=== PATIENT | male | born 1955 | race Two or more races ===

== ENCOUNTER 2025-03-11 05:06 | Inpatient (IN) | payer OTHER ==
[~2025-03-11] VITALS: Ht 167.6 cm; Wt 85.0 kg
--- NOTE | 2025-03-11 05:52 | ED.PDOC ---
GI ASSESSMENT HPI Comments HPI: 69-year-old male who came to ER from abdominal pain. Patient states he woke up at around 3:00 a.m. with periumbilical abdominal pain, had 1 episode of diarrhea, followed by multiple episodes of vomiting. Possibly had spoiled food (potato salad, meatloaf, beans) pain is constant nonradiating. 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 REVIEW OF SYSTEMS: CONSTITUTIONAL: Denies acute: fever, diaphoresis, chills, HEAD: Denies acute: headache, photophobia Eyes: Denies acute: Double vision, vision loss, eye pain, eye discharge. EARS: Denies acute: tinnitus, hearing loss, ear discharge, ear pain, THROAT: Denies acute: sore throat, swelling, difficulty swallowing , pain with swallowing, change in voice. NECK: Denies acute: neck pain, neck swelling, stiff neck. HEART: Denies acute : chest pain, palpitations, LUNGS: Denies acute: SOB, wheezing, cough, hemoptysis ABDOMEN: Denies acute: diarrhea, melena , hematemesis, hematochezia SKIN: Denies acute: rash, redness, lesions, itchiness. EXTREMITIES: Denies acute: calf pain, numbness, tingling, weakness, denies pain in extremity. Denies acute: Low back pain. Neuro: Denies acute: focal neurological deficit, motor or sensory focal neurological deficit, tremors, seizure like activity, confusion, dizziness, change in mental status, loss of bowel or bladder function, cauda equina like symptoms. : Denies acute: dysuria, hematuria, flank pain, increase in urinary frequency. PSYCH: Denies acute: hallucination, suicidal ideation, homicidal ideation. PHYSICAL EXAM: General: ---moderate----acute distress, awake and alert. Head: normocephalic, atraumatic. No raccoon's eyes, no aguiar sign. Neck: supple, trachea is midline, no swelling. Throat: Normal phonation. Eyes:, no erythema, no purulent discharge, no proptosis, no icterus. Heart: regular rate, regular rhythm, no significant murmur appreciated. Lungs: no apparent respiratory distress, Able to speak in full sentences. No wheezing, no rhonchi, no crackles. No stridors Clear to auscultation bilaterally. Abdomen: Umbilical tender to palpation, non distended, soft, no guarding, no rebound, + bowel sounds. Neuro: Awake, Alert, oriented to name, self, situation, follows commands GCS=15. Speech is normal. Skin: no petechia, no purpura, no cyanosis, non-pale, not jaundice. Lower extremities: --no - Pitting edema no deformity, no focal swelling, no calf TTP. Makes eye contact. moves all four extremities. Face: no apparent facial droop. Ambulating in the ED independently. ED COURSE: DISCLAIMER: This medical document was created using an electronic medical record system with voice recognition software and computerized dictation system. Although this document has been carefully reviewed, there might still be some phonetic and typographical errors. Occasional wrong-word or "sound-alike" substitutions may have occurred due to the inherent limitations of voice recognition software. These areas are purely typographical due to imperfections of the software programs and do not reflect any compromise in the patient's medical care. Please read the chart carefully and recognize, using context, where these substitutions have occurred. Chief Complaint: Abdominal Pain Time Seen by MD: 05:51 Reviewed Notes: Nurses Notes, Allergies Allergies: Coded Allergies: NO KNOWN ALLERGIES (Unverified , 03/11/25) Information Source: Patient, Spouse Mode of Arrival: Ambulatory Was a procedure done? Was a procedure done?: No GI differential Dx Differential Diagnosis: Gastritis/PUD, Gastroenteritis, Food Poisoning, Other (DDX include but not limited to diverticulitis, colitis, gastroenteritis, acute abdomen, SBO, enteritis, constipation, volvulus, appendicitis, Gallbladder disease, choledocolithiasis, ascending cholangitis, pancreatitis, intraAbdominal mass/neoplasm, hepatitis, UTI, pylonephritis, kidney stone, aneurysm, dissection, Inflammatory bowel disease, gastroparesis, ischemic bowel.Food poisoning, bacterial/parasitic/viral etiology, trauma, diabetes DKA,) X-Ray, Labs, Meds, VS Vital Signs Date Time Temp Pulse Resp B/P (MAP) Pulse Ox O2 Delivery O2 Flow Rate FiO2 03/11/25 11:00 95 12 124/73 (90) 96 03/11/25 09:00 72 118/77 (91) 92 03/11/25 08:00 73 131/68 (89) 93 03/11/25 07:21 Room Air* 0 21 03/11/25 06:36 80 16 121/74 (90) 96 03/11/25 06:23 140/76 03/11/25 05:08 97.1 115 22 140/76 100 97.1 Lab Test 03/11/25 06:55 03/11/25 06:00 03/11/25 05:40 Range/Units Troponin I High Sensitivity < 3 L < 3 L </=54 ng/L Urine Color Yellow Yellow Urine Clarity Clear Clear Urine pH 7.0 5.0-9.0 Urine Specific [place] 1.025 1.001-1.035 Urine Protein Trace H Negative Urine Ketones 1+ H Negative Urine Blood Negative Negative /uL Urine Nitrite Negative Negative Urine Bilirubin Negative Negative Urine Urobilinogen 2 H Negative mg/dL Urine Leukocyte Esterase Negative Negative /uL Urine RBC <1 0 - 3 /hpf Urine Microscopic WBC 1 0-3 /HPF Urine Squamous Epithelial Cells Few <5 /hpf Urine Bacteria None seen None Seen /hpf Urine Mucus Few None Seen Urine Glucose Normal Normal mg/dL White Blood Count 7.4 4.4-10.8 10^3/uL Red Blood Count 4.96 4.5-5.90 10^6/uL Hemoglobin 15.7 13.5-17.5 g/dL Hematocrit 46.4 41.0-53.0 % Mean Corpuscular Volume 93.5 80.0-100.0 fL Mean Corpuscular Hemoglobin 31.6 28.0-32.0 pg Mean Corpuscular Hemoglobin Concent 33.8 32.0-36.0 g/dL Red Cell Distribution Width 14.0 11.8-14.3 % Platelet Count 179 140-450 10^3/uL Mean Platelet Volume 9.0 6.9-10.8 fL Neutrophils (%) (Auto) 75.2 37.0-80.0 % Lymphocytes (%) (Auto) 16.6 10.0-50.0 % Monocytes (%) (Auto) 6.9 0.0-12.0 % Eosinophils (%) (Auto) 0.8 0.0-7.0 % Basophils (%) (Auto) 0.5 0.0-2.0 % Neutrophils # (Auto) 5.6 1.6-8.6 10 ^3/uL Lymphocytes # (Auto) 1.2 0.4-5.4 10 ^3/uL Monocytes # (Auto) 0.5 0-1.3 10 ^3/uL Eosinophils # (Auto) 0.1 0-0.8 10 ^3/uL Basophils # (Auto) 0 0-0.2 10 ^3/uL Nucleated Red Blood Cells 0.1 % Sodium Level 141 136-145 mmol/L Potassium Level 4.0 3.5-5.1 mmol/L Chloride Level 102 98-107 mmol/L Carbon Dioxide Level 27 20-31 mmol/L Anion Gap 12 5-15 Blood Urea Nitrogen 14 9-23 mg/dL Creatinine 1.03 0.700-1.30 mg/dL Glomerular Filtration Rate Calc 78 >90 mL/min BUN/Creatinine Ratio 13.6 10.0-20.0 Serum Glucose 149 H 74-106 mg/dL Hemoglobin A1c 5.8 H <5.7 % A1C Lactic Acid Level 1.7 0.4-2.0 mmol/L Calcium Level 10.6 H 8.7-10.4 mg/dL Magnesium Level 2.6 1.6-2.6 mg/dL Total Bilirubin 1.2 H 0.2-1.0 mg/dL Aspartate Amino Transferase (AST) 24 13-40 U/L Alanine Aminotransferase (ALT) 21 7-40 U/L Alkaline Phosphatase 71 46-116 U/L Total Protein 8.3 H 5.7-8.2 g/dL Albumin 4.9 H 3.2-4.8 g/dL Lipase 41 12-53 U/L [place] [id number] Ph: [phone] DIAGNOSTIC IMAGING Diagnostic Imaging Report : [id number] Signed PATIENT: WILMA ABREU ACCT: [id number] UNIT: [id number] : 1955 LOC: ER ROOM / BED: / AGE / SEX: 69 / M ADM STATUS: REG ER SERVICE [id number] ORDERING PHYSICIAN: CARMINE GONZALEZ DO PROCEDURE(s): ABPL - CT AB PEL WO CON-NO ORAL OR IV REASON: abd pain n/v ORDER NUMBER(s): [id number], ACCESSION NUMBER(s): [id number] Exam: CT CT AB PEL WO CON-NO ORAL OR IV History: abd pain n/v Comparison Study: None TECHNIQUE: Multidetector CT of the abdomen and pelvis was performed from lung bases to pubic symphysis. Imaging was performed without IV contrast. Axial, coronal and sagittal multiplanar reformats were obtained from the axial data set by the technologist. Radiation optimization: All CT scans at this facility use at least one of these dose optimization techniques: automated exposure control mA and/or kV adjustment per patient size (includes targeted exams where dose is matched to clinical indication) or iterative reconstruction. Radiation Dose Information: CT Dose: CTDI volume is 19.46 mGy. Dose-length product is 1159.91 mGy*cm FINDINGS: Evaluation of solid organs is limited due to lack of intravenous contrast use. Imaged portions of the lung bases demonstrate patchy opacities which may be on the basis of vascular congestion. The liver, gallbladder, spleen, pancreas and adrenal glands appear unremarkable. The kidneys appear symmetric without hydronephrosis. The colon and appendix appear unremarkable. There are dilated loops of small bowel measuring up to 3.3 cm which are fluid-filled. The ileum is relatively collapsed. The duodenum appears normal in caliber. There is no evidence of free fluid, free air, or adenopathy. Scattered colonic diverticulosis. IMPRESSION: 1. Dilated loops of small bowel predominantly of distal jejunum and proximal ileum with normal caliber distal ileum and colon. Findings likely represent partial versus early complete small bowel obstruction. ATED BY: SANDRITA BARAJAS MD DICTATED DATE/TIME: 03/11/25607 SIGNED BY: SANDRITA BARAJAS MD SIGNED DATE/TIME: 03/11/25607 CC: Time of 1ST Reevaluation: 05:47 Reevaluation 1ST: Unchanged Patient Education/Counseling: Diagnosis, Treatment Family Education/Counseling: Diagnosis, Treatment Comments MDM: patient presented with the above HPI.--abdominal pain nausea and vomiting----workup was initiated. patient was found with the above mentioned diagnosis. the following medications were ordered: please refer to order lists of meds and tests obtained by myself Dr. Gonzalez. Patient ED course and VS have been stabilized. Patient has been reassessed in the ED and remained in a stable condition. Pertinent incidental findings were discussed with the patient and/or family. Patient/family voices understanding and is agreeable with plan. Patient has been observed in the ED adequate length of time to insure improvement/stability. Escalation of care considered: Consideration of escalation to observation or admission Patient was found with small bowel obstruction. NG tube was ordered. A consult for General surgery was placed. Patient was ADMITTED to the medicine team for further evaluation and treatment of their presentation. All the reports of any imaging studies that were ordered by myself were reviewed by myself. SEPSIS Sepsis Screen Date sepsis recognized/suspect: Mar 11, 2025 Time Sepsis recognized/suspect: 512 Recent Procedure: No On Antibiotic Therapy: No Respiratory Rate >20: Yes Heart Rate >90: Yes Temp<36 C (96.8 F) or >38.3 C: No SBP <90 or MAP <65 mmHG: No New Acute Mental Status Change: No Is the patient on CPAP, BIPAP,: No Physician Orders Ct Ab Pel Wo Con-No Oral Or Iv (03/11/25 05:20) Ng/Orogastric Tube To Lis (03/11/25 06:14) Vital Signs Date Time Temp Pulse Resp B/P (MAP) Pulse Ox O2 Delivery O2 Flow Rate FiO2 03/11/25 11:00 95 12 124/73 (90) 96 03/11/25 09:00 72 118/77 (91) 92 03/11/25 08:00 73 131/68 (89) 93 03/11/25 07:21 Room Air* 0 21 03/11/25 06:36 80 16 121/74 (90) 96 03/11/25 06:23 140/76 03/11/25 05:08 97.1 115 22 140/76 100 97.1 Laboratory Tests Test 03/11/25 05:40 Lactic Acid Level 1.7 mmol/L (0.4-2.0) White Blood Count 7.4 10^3/uL (4.4-10.8) Departure 1 Departure Time of Disposition: 09:42 ([place]ell Authorization to admit at [facility]: [id number] presented with abdominal pain that was concerning for possible appendicits, gastritis, cholecystitis, colitis, gastroenteritis, sbo, or orther possible surgical emergency. Data: 1. I ordered and reviewed the result of at least 3 labs including a CBC, BMP, and Urinalysis. 2. I independently interpreted the following tests: CT Abdomen and Pelvis is concerning for small bowel obstruction.Risk:This patient has a high risk of morbidity due to further diagnostic testing or treatment and may suffer from an acute abdominal process disorder. Workup reveals small bowel obstruction and intractable pain and patient should be admitted for further workup. and possible expert consultation. ) Impression: Primary Impression: Small bowel obstruction Disposition: ADMITTED INPATIENT Admit to: Tele Condition: Guarded Discharged With: Self Critical Care Note Critical Care Time?: Yes (45 min-critical care time only) Critical care comment: Due to a high probability of clinically significant, life threatening deterioration, the patient required my highest level of preparedness to intervene emergently and I personally spent this critical care time directly and personally managing the patient. This critical care time included obtaining a history; examining the patient; pulse oximetry; ordering and review of studies; arranging urgent treatment with development of a management plan; evaluation of patient's response to treatment; frequent reassessment; and, discussions with other providers. This critical care time was performed to assess and manage the high probability of imminent, life-threatening deterioration that could result in multi-organ failure. It was exclusive of separately billable procedures and treating other patients and teaching time. Please see my other sections and the rest of the note for further information on patient assessment and treatment. I personally scribed for ACRMINE GONZALEZ DO ([email or web address]) on 03/11/25 at 05:52. Electronically submitted by Bharath Archuleta ([email or web address]). CARMINE GONZALEZ DO Mar 11, 2025 05:52 GABRIELLA GONSALES MD Mar 11, 2025 09:43
[2025-03-11 05:57] LABS: Hematocrit 46.4 % (41.0-53.0); Hemoglobin 15.7 g/dL (13.5-17.5); Mean Corpuscular Hemoglobin 31.6 pg (28.0-32.0); Mean Corpuscular Volume 93.5 fL (80.0-100.0); Nucleated Red Blood Cells % 0.1 %
--- NOTE | 2025-03-11 06:09 | DVH ---
Exam: CT CT AB PEL WO CON-NO ORAL OR IV History: abd pain n/v Comparison Study: None TECHNIQUE: Multidetector CT of the abdomen and pelvis was performed from lung bases to pubic symphysis. Imaging was performed without IV contrast. Axial, coronal and sagittal multiplanar reformats were obtained from the axial data set by the technologist. Radiation optimization: All CT scans at this facility use at least one of these dose optimization techniques: automated exposure control mA and/or kV adjustment per patient size (includes targeted exams where dose is matched to clinical indication) or iterative reconstruction. Radiation Dose Information: CT Dose: CTDI volume is 19.46 mGy. Dose-length product is 1159.91 mGy*cm FINDINGS: Evaluation of solid organs is limited due to lack of intravenous contrast use. Imaged portions of the lung bases demonstrate patchy opacities which may be on the basis of vascular congestion. The liver, gallbladder, spleen, pancreas and adrenal glands appear unremarkable. The kidneys appear symmetric without hydronephrosis. The colon and appendix appear unremarkable. There are dilated loops of small bowel measuring up to 3.3 cm which are fluid-filled. The ileum is relatively collapsed. The duodenum appears normal in caliber. There is no evidence of free fluid, free air, or adenopathy. Scattered colonic diverticulosis. IMPRESSION: 1. Dilated loops of small bowel predominantly of distal jejunum and proximal ileum with normal caliber distal ileum and colon. Findings likely represent partial versus early complete small bowel obstruction.
[2025-03-11 06:10] LABS: Urine Protein, UAD TRACE (Negative)
[2025-03-11] MEDS ORDERED: ONDANSETRON HCL 4 MG/2 ML VIAL ONE (06:15)
[2025-03-11] MEDS ORDERED: fentaNYL CITRATE 100 MCG/2 ML VL ONE (06:16)
[2025-03-11] MEDS: SODIUM CHLORIDE 0.9% 1,000 ML IV ONE (06:19)
[2025-03-11] MEDS: ONDANSETRON HCL 4 MG/2 ML VIAL IV ONE (06:20)
[2025-03-11 06:22] LABS: Alanine Aminotransferase 21 U/L (7-40); Alkaline Phosphatase 71 U/L (46-116); Anion Gap 12 (5-15); BUN/Creatinine Ratio 13.6 (10.0-20.0); Bilirubin, Total 1.2 mg/dL (0.2-1.0); Blood Urea Nitrogen 14 mg/dL (9-23); Carbon Dioxide 27 mmol/L (20-31); Chloride 102 mmol/L (98-107); Potassium 4.0 mmol/L (3.5-5.1); Sodium 141 mmol/L (136-145)
[2025-03-11 06:23] LABS: Albumin 4.9 g/dL (3.2-4.8); Calcium 10.6 mg/dL (8.7-10.4); Glucose 149 mg/dL (74-106); Total Protein 8.3 g/dL (5.7-8.2)
[2025-03-11] MEDS: fentaNYL CITRATE 100 MCG/2 ML VL IV ONE (06:23)
[2025-03-11 06:33] LABS: Lipase 41 U/L (12-53)
[2025-03-11] MEDS ORDERED: NITROGLYCERIN 0.4 MG SL TAB SL PRN (11:30)
[2025-03-11] MEDS ORDERED: MORPHINE SULFATE INJ 2 MG/ml SYRG IV PRN ×2 (11:30)
--- NOTE | 2025-03-11 11:43 | DVHHPRES ---
History of Present Illness Resident Creating Document: BERTA GREER RESIDENT History of Present Illness Mr. 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 Pain is constant, non-radiating. On exam, abdomen is soft, non-distended, with periumbilical tenderness, positive bowel sounds, and no guarding or rebound. Patient denies any previous similar history, upper or lower GI bleed, fever, chills, or aspiration. Differential includes gastritis/PUD, gastroenteritis, bowel obstruction and food poisoning. No prior hospitalization noted, patient usually follows with the [facility] system, limited access to the medical records for now. [place] Authorization to admit at [facility]: [id number]. PMHx: Denies. Not on home medications. 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 Social history: Comes from home, denies active alcohol, recreational drug, smoking. Review of Systems Constitutional: Yes: Malaise; No: Fever, Chills, Sweats, Weakness, Other Eyes: No: Pain, Vision change, Conjunctivae inflammation, Eyelid inflammation, Other, Redness ENT: No: Ear pain, Ear discharge, Nose pain, Nose discharge, Nose congestion, Mouth pain, Mouth swelling, Throat pain, Throat swelling, Other Respiratory: No: Cough, Dry, Shortness of breath, SOB with excertion, Wheezing, Hemoptysis, Pleuritic Pain, Sputum, Wheezing, Other Cardiovascular: No: Chest Pain, Palpitations, Orthopnea, Paroxysmal Noc. Dyspnea, Edema, Lt Headedness, Other Gastrointestinal: Nausea, Vomiting, Abdominal Pain, Constipation; No: Diarrhea, Melena, Hematochezia, Other Genitourinary: No Dysuria, No Frequency, No Incontinence, No Hematuria, No Retention, No Other Musculoskeletal: No: other, neck pain, shoulder pain, arm pain, back pain, hand pain, leg pain, foot pain Skin: No: Rash, Lesions, Jaundice, Bruising, Other Neurological: No: Weakness, Numbness, Incoordination, Change in speech, Confusion, Seizures, Other Allergies: Coded Allergies: NO KNOWN ALLERGIES (Unverified , 03/11/25) Medications Current Medications Medications Dose Ordered Sig/Rik Route Start Time Stop Time Status Last Admin Dose Admin Sodium Chloride 1,000 ml @ 60 mls/hr [id number] IV 03/11/25 11:30 UNV Morphine Sulfate 2 mg Q4HPRN PRN IV 03/11/25 11:30 UNV Nitroglycerin 0.4 mg Q5MINP PRN SL 03/11/25 11:30 UNV Morphine Sulfate 2 mg Q30M PRN IV 03/11/25 11:30 UNV Exam Vital Signs Vital Signs Date Time Temp Pulse Resp B/P (MAP) Pulse Ox O2 Delivery O2 Flow Rate FiO2 03/11/25 07:21 Room Air* 0 21 03/11/25 06:36 80 16 121/74 (90) 96 03/11/25 05:08 97.1 97.1 General Appearance: Alert, Oriented X3, Cooperative, mild distress HEENT: Atraumatic, PERRLA, EOMI, Other (Dry mucous membrane.) Respiratory: Clear to auscultation, Normal air movement, Other (Breathing comfortably in the room air) Cardiovascular: Regular rate, Normal S1, Normal S2, No murmurs Abdominal: Other (Absent BS, distended abdomen, no cardboard rigidity, tympanic, diffuse pain in the left lower quadrant, epigastric area and right lower quadrant. Vizcaino's negative. Right paramedian healed surgical wound. ) Extremities: No clubbing, No cyanosis, No edema Skin: No rashes, No breakdown, No significant lesion Neuro: Normal speech, Strength at 5/5 X4 ext, Normal tone, Sensation intact, Cranial nerves 3-12 NL, Other (Patient is uncomfortable, denied further gait testing. Denies any movement issues prior to the hospitalization.) Psych/Mental Status: Mental status NL, Mood NL Labs/Xrays Labs Test 03/11/25 06:55 03/11/25 06:00 03/11/25 05:40 Range/Units Troponin I High Sensitivity < 3 L </=54 ng/L Urine Color Yellow Yellow Urine Clarity Clear Clear Urine pH 7.0 5.0-9.0 Urine Specific [place] 1.025 1.001-1.035 Urine Protein Trace H Negative Urine Ketones 1+ H Negative Urine Blood Negative Negative /uL Urine Nitrite Negative Negative Urine Bilirubin Negative Negative Urine Urobilinogen 2 H Negative mg/dL Urine Leukocyte Esterase Negative Negative /uL Urine RBC <1 0 - 3 /hpf Urine Microscopic WBC 1 0-3 /HPF Urine Squamous Epithelial Cells Few <5 /hpf Urine Bacteria None seen None Seen /hpf Urine Mucus Few None Seen Urine Glucose Normal Normal mg/dL White Blood Count 7.4 4.4-10.8 10^3/uL Red Blood Count 4.96 4.5-5.90 10^6/uL Hemoglobin 15.7 13.5-17.5 g/dL Hematocrit 46.4 41.0-53.0 % Mean Corpuscular Volume 93.5 80.0-100.0 fL Mean Corpuscular Hemoglobin 31.6 28.0-32.0 pg Mean Corpuscular Hemoglobin Concent 33.8 32.0-36.0 g/dL Red Cell Distribution Width 14.0 11.8-14.3 % Platelet Count 179 140-450 10^3/uL Mean Platelet Volume 9.0 6.9-10.8 fL Neutrophils (%) (Auto) 75.2 37.0-80.0 % Lymphocytes (%) (Auto) 16.6 10.0-50.0 % Monocytes (%) (Auto) 6.9 0.0-12.0 % Eosinophils (%) (Auto) 0.8 0.0-7.0 % Basophils (%) (Auto) 0.5 0.0-2.0 % Neutrophils # (Auto) 5.6 1.6-8.6 10 ^3/uL Lymphocytes # (Auto) 1.2 0.4-5.4 10 ^3/uL Monocytes # (Auto) 0.5 0-1.3 10 ^3/uL Eosinophils # (Auto) 0.1 0-0.8 10 ^3/uL Basophils # (Auto) 0 0-0.2 10 ^3/uL Nucleated Red Blood Cells 0.1 % Sodium Level 141 136-145 mmol/L Potassium Level 4.0 3.5-5.1 mmol/L Chloride Level 102 98-107 mmol/L Carbon Dioxide Level 27 20-31 mmol/L Anion Gap 12 5-15 Blood Urea Nitrogen 14 9-23 mg/dL Creatinine 1.03 0.700-1.30 mg/dL Glomerular Filtration Rate Calc 78 >90 mL/min BUN/Creatinine Ratio 13.6 10.0-20.0 Serum Glucose 149 H 74-106 mg/dL Lactic Acid Level 1.7 0.4-2.0 mmol/L Calcium Level 10.6 H 8.7-10.4 mg/dL Total Bilirubin 1.2 H 0.2-1.0 mg/dL Aspartate Amino Transferase (AST) 24 13-40 U/L Alanine Aminotransferase (ALT) 21 7-40 U/L Alkaline Phosphatase 71 46-116 U/L Total Protein 8.3 H 5.7-8.2 g/dL Albumin 4.9 H 3.2-4.8 g/dL Lipase 41 12-53 U/L SEPSIS Sepsis Screen Date sepsis recognized/suspect: Mar 11, 2025 Time Sepsis recognized/suspect: 512 Recent Procedure: No On Antibiotic Therapy: No Respiratory Rate >20: Yes Heart Rate >90: Yes Temp<36 C (96.8 F) or >38.3 C: No SBP <90 or MAP <65 mmHG: No New Acute Mental Status Change: No Is the patient on CPAP, BIPAP,: No Physician Orders Ct Ab Pel Wo Con-No Oral Or Iv (03/11/25 05:20) Troponin-I Hs (03/11/25 08:20) Ng/Orogastric Tube To Lis (03/11/25 06:14) Admit (03/11/25 11:23) Allergies (03/11/25 11:23) Code Status (03/11/25 11:23) Sodium Chloride 0.9% (03/11/25 11:30) Complete Blood Count (03/12/25 04:00) Comprehensive Metabolic Panel (03/12/25 04:00) Npo (Nothing By Mouth) Diet (03/11/25 Lunch) Condition: Serious (03/11/25 11:23) Bedrest With Bathroom Privileg (03/11/25 11:23) Bedside Commode (03/11/25 11:23) Maintain Bed Rest (03/11/25 11:23) Morphine Sulfate Injection (03/11/25 11:30) Sequential Compression Device (03/11/25 ) Nitroglycerin Sublingual (Ntrostat Subli (03/11/25 11:30) Morphine Sulfate Injection (03/11/25 11:30) Oxygen By Nasal Cannula (03/11/25 11:23) Stat Ekg For Chest Pain (03/11/25 11:23) Notify Of Changes From Base (03/11/25 11:23) Social Services Analyst For 24 Hours (03/11/25 11:23) Emergency Dysrhythmia Protocol (03/11/25 11:23) Rhythm Strips Once Every Shift (03/11/25 11:23) * Surgical Consult (03/11/25 11:29) Vital Signs Date Time Temp Pulse Resp B/P (MAP) Pulse Ox O2 Delivery O2 Flow Rate FiO2 03/11/25 07:21 Room Air* 0 21 03/11/25 06:36 80 16 121/74 (90) 96 03/11/25 06:23 140/76 03/11/25 05:08 97.1 115 22 140/76 100 97.1 Laboratory Tests Test 03/11/25 05:40 Lactic Acid Level 1.7 mmol/L (0.4-2.0) White Blood Count 7.4 10^3/uL (4.4-10.8) Medications Medications Dose Ordered Sig/Rik Route Start Time Stop Time Status Last Admin Dose Admin Fentanyl Citrate 100 mcg ONCE ONCE IV 03/11/25 06:15 03/11/25 06:20 DC 03/11/25 06:23 100 MCG Ondansetron HCl 8 mg ONCE ONCE IV 03/11/25 05:30 03/11/25 05:31 DC 03/11/25 06:20 8 MG Sodium Chloride 1,000 ml @ 1,000 mls/hr Q1H ONCE IV 03/11/25 05:30 03/11/25 06:29 DC 03/11/25 06:19 1,000 MLS/HR Assessment/Plan Assessment/Plan Assessment and Plan: Present on Admission: #acute gastroenteritis: Viral versus bacterial origin; Gram-negative, anaerobes, status post spoiled food ingestion, nausea vomiting diarrhea, rule out cyclic vomiting syndrome, UDS to check. Stool workup pending, IV fluid antiemetics, NPO for now. IV Zosyn for coverage, no history of recent hospitalization, antibiotics, prior history of C diff, clinically unlikely. No EGD ever done in past 10 years. #Acute small-bowel obstruction: Dilated loops of small bowel predominantly of distal jejunum and proximal ileum with normal caliber distal ileum and colon on CT abdomen pelvis represent partial versus early complete small bowel obstruction: NPO, underlying cause to evaluate, bowel decompression, symptomatic treatment, electrolyte correction and surgical consultation with Dr. Hickman. close monitoring with interval abdominal examination for progression into surgical abdomen. Rule out secondary causes including diabetes, ischemia, if high suspicion of obstructive mass repeat CT with contrast to consider. Repeat lactic acid in a.m.. #Pseudo hypercalcemia: normalized for corrected calcium for albumin. Trend CMP. If true hypercalcemia noted, further workup with vitamin-D, PTH, ionized calcium corrected for albumin. #Possible sepsis: Likely secondary due to intra-abdominal infection. Noted on arrival meeting SIRS criteria, Presented with heart rate more than 90, respiratory rate more than 20, with possible intra-abdominal infection. blood culture, stool further workup, #Scattered colonic diverticulosis: Noted on CT abdomen pelvis. Avoid constipa tion, high-fiber diet when resumes diet, needs outpatient close GI follow up for age-appropriate GI workup. #mild hyperbilirubinemia: In the presence of abdominal pain and limited medical history, we will rule out any hepatobiliary obstruction with liver ultrasound. Trend bilirubin. #[id number] dehydration: Antiemetics, IV fluid to continue, no signs of fluid overload, no pedal edema, crackles, elevated JVP, breathing comfortably in the room air. #Distant history of H Pylori infection: PUD/GERD history. as per patient it was treated in [facility]. Last Colonoscopy 6 years ago, no concerning findings he can recall. 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 PUD prophylaxis: protonix 40mg IV to continue as patient is NPO. DVT prophylaxis: SCD/brisk movement. In preparation of surgical intervention. Barriers to discharge: Medical diagnosis and management in progress. Medically not stable to transfer to another acute facility. PT and SW consult as needed. PCP: Nilo COON. Limited History. Specialist Relevant To Admission: General surgery, on-call Dr. Hickman consulted. Case discussed with Dr. Pace. Code Status: Full Code. Discussion for medical care and goals of care needed total 23 minutes bedside. Patient is admitted to the [facility] surgery floor. Plan discussed with: Patient My Orders Orders - BERTA GREER Procedure Category Date Status Time Admit ADMIT 03/11/25 Transmitted 11:23 Allergies TAMERA 03/11/25 In Process 11:23 Code Status CODE 03/11/25 Transmitted 11:23 Sodium Chloride 0.9% PHA 03/11/25 Logged 11:30 Complete Blood Count LAB 03/12/25 Verified 04:00 Comprehensive LAB 03/12/25 Verified Metabolic Panel 04:00 Npo (Nothing By DIET 03/11/25 Transmitted Mouth) Diet Lunch Condition: Serious TAMERA 03/11/25 In Process 11:23 Bedrest With Bathroom [facility] 03/11/25 In Process Privileg 11:23 Bedside Commode [facility] 03/11/25 In Process 11:23 Maintain Bed Rest [facility] 03/11/25 In Process 11:23 Morphine Sulfate PHA 03/11/25 Logged Injection 11:30 Sequential [facility] 03/11/25 In Process Compression Device Nitroglycerin PHA 03/11/25 Logged Sublingual (Ntrostat 11:30 Morphine Sulfate PHA 03/11/25 Logged Injection 11:30 Oxygen By Nasal RT 03/11/25 Transmitted Cannula 11:23 Stat Ekg For Chest [facility] 03/11/25 In Process Pain 11:23 Notify Md Of Changes [facility] 03/11/25 In Process From Base 11:23 Social Services Analyst For [facility] 03/11/25 In Process 24 Hours 11:23 Emergency Dysrhythmia [facility] 03/11/25 In Process Protocol 11:23 Rhythm Strips Once [facility] 03/11/25 In Process Every Shift 11:23 * Surgical Consult CONS 03/11/25 Transmitted 11:29 Date of Service: Mar 11, 2025 Billing Provider: ROLO PACE MD Common Visit Codes: [id number] INP/OBS CARE (HIGH) Secondary Visit Codes: [id number] CARE PLAN 30 MINUTES BERTA GREER Mar 11, 2025 11:43
[2025-03-11] MEDS ORDERED: ONDANSETRON HCL 4 MG/2 ML VIAL IV PRN (11:45)
--- NOTE | 2025-03-11 12:37 | DVH ---
STUDY: US LIVER TECHNIQUE: RUQ ultrasound was obtained using standard technique with Doppler. INDICATIONS: elevated bilirubin r/o obstruction FINDINGS: PANCREAS: Normal in size and echogenicity. Tail of pancreas is not well seen. LIVER: Hepatomegaly to 17 cm. Heterogenous echotexture. 6.8 x 5.2 x 4.1 cm echogenic mass within the right hepatic lobe. GALLBLADDER: No gallstones. Negative middleton sign. no gallbladder wall thickening or pericholecystic fluid. COMMON BILE DUCT: Normal in caliber. RIGHT KIDNEY: Normal in size and echogenicity. No mass. No urinary stones. No hydronephrosis. IMPRESSION: 1. No gallstones. No CBD dilation. 2. Hepatomegaly with a 6.8 cm echogenic mass within the right hepatic lobe. Recommend CT or MRI liver mass protocol for further evaluation.
[2025-03-11] MEDS: SODIUM CHLORIDE 0.9% 1,000 ML IV SCH (13:56)
[2025-03-11] MEDS: PANTOPRAZOLE 40 MG/10 ML VIAL INJ IV SCH (13:57)
[2025-03-11] MEDS ORDERED: PANTOPRAZOLE 40 MG/10 ML VIAL INJ IV ONE (13:57)
[2025-03-11] MEDS: PIPERACILLIN-TAZOB 3.375GM 100 ML IV SCH (14:04)
[2025-03-11] MEDS ORDERED: PIPERACILLIN-TAZOB 3.375GM 100 ML IV ONE (14:04)
[2025-03-11 16:53] VITALS: RESP 18; O2SAT 96
[2025-03-11 17:21] VITALS: BP 144/84; PULSE 79; RESP 17; TEMP 97.5; O2SAT 95
--- NOTE | 2025-03-11 17:57 | DVHINCON2 ---
Consultation - Surgical Date Seen: Mar 11, 2025 Referring Physician Reason for Consultation Partial SBO History of Present Illness History of Present Illness Mr. Cruz is a 69-year-old male who presents with a abdominal pain, nausea, vomiting that started last night after eating at a [employer]. Patient states that probably ate some bad food, because it feels exactly the same way it did when he had food poisoning in the past. Patient states that he started with the abdominal pain then developed nausea vomiting and then had bowel movements. No blood in the vomit or bowel movements. He states that he vomited many times and now he feels good. States that his abdomen is back to normal. Denies fevers, chills, changes in urinary habits. NG tube was not placed in the emergency department although he vomited like 6 or 7 times in the emergency department. Past Medical/Surgical History Past Medical/Surgical History Past medical history liver amebiasis Past surgical history liver resection due to amebiasis Family and Social History Family and Social History Family history noncontributory ETOH occasional T Ob/drugs denies Allergies and medications Allergies: Coded Allergies: NO KNOWN ALLERGIES (Unverified , 03/11/25) Review of systems Review of Systems: Deferred Examination Vital signs Vital Signs Date Time Temp Pulse Resp B/P (MAP) Pulse Ox O2 Delivery O2 Flow Rate FiO2 03/11/25 17:21 97.5 79 17 144/84 (104) 95 97.5 03/11/25 07:21 Room Air* 0 21 Medications Current Medications Medications (Trade) Dose Ordered Sig/Rik Route PRN Reason Start Time Stop Time Status Last Admin Sodium Chloride 1,000 ml @ 60 mls/hr [id number] IV 03/11/25 11:30 03/11/25 13:56 Morphine Sulfate 2 mg Q4HPRN PRN IV SEVERE PAIN (7-10 PAIN SCALE) 03/11/25 11:30 Nitroglycerin (Ntrostat Sublingual) 0.4 mg Q5MINP PRN SL FOR CHEST PAIN 03/11/25 11:30 Morphine Sulfate 2 mg Q30M PRN IV FOR CHEST PAIN 03/11/25 11:30 Ondansetron HCl (Zofran) 4 mg Q8HP PRN IV NAUSEA OR VOMITING 03/11/25 11:45 Piperacillin Sod/ Tazobactam Sod 100 ml @ 100 mls/hr Q8HR IV 03/11/25 14:00 03/11/25 14:04 Pantoprazole Sodium (Protonix) 40 mg DAILY IV 03/11/25 12:00 03/11/25 13:57 Laboratory Labs Test 03/11/25 06:55 03/11/25 06:00 03/11/25 05:40 Range/Units Troponin I High Sensitivity < 3 L </=54 ng/L Urine Color Yellow Yellow Urine Clarity Clear Clear Urine pH 7.0 5.0-9.0 Urine Specific [place] 1.025 1.001-1.035 Urine Protein Trace H Negative Urine Ketones 1+ H Negative Urine Blood Negative Negative /uL Urine Nitrite Negative Negative Urine Bilirubin Negative Negative Urine Urobilinogen 2 H Negative mg/dL Urine Leukocyte Esterase Negative Negative /uL Urine RBC <1 0 - 3 /hpf Urine Microscopic WBC 1 0-3 /HPF Urine Squamous Epithelial Cells Few <5 /hpf Urine Bacteria None seen None Seen /hpf Urine Mucus Few None Seen Urine Glucose Normal Normal mg/dL White Blood Count 7.4 4.4-10.8 10^3/uL Red Blood Count 4.96 4.5-5.90 10^6/uL Hemoglobin 15.7 13.5-17.5 g/dL Hematocrit 46.4 41.0-53.0 % Mean Corpuscular Volume 93.5 80.0-100.0 fL Mean Corpuscular Hemoglobin 31.6 28.0-32.0 pg Mean Corpuscular Hemoglobin Concent 33.8 32.0-36.0 g/dL Red Cell Distribution Width 14.0 11.8-14.3 % Platelet Count 179 140-450 10^3/uL Mean Platelet Volume 9.0 6.9-10.8 fL Neutrophils (%) (Auto) 75.2 37.0-80.0 % Lymphocytes (%) (Auto) 16.6 10.0-50.0 % Monocytes (%) (Auto) 6.9 0.0-12.0 % Eosinophils (%) (Auto) 0.8 0.0-7.0 % Basophils (%) (Auto) 0.5 0.0-2.0 % Neutrophils # (Auto) 5.6 1.6-8.6 10 ^3/uL Lymphocytes # (Auto) 1.2 0.4-5.4 10 ^3/uL Monocytes # (Auto) 0.5 0-1.3 10 ^3/uL Eosinophils # (Auto) 0.1 0-0.8 10 ^3/uL Basophils # (Auto) 0 0-0.2 10 ^3/uL Nucleated Red Blood Cells 0.1 % Sodium Level 141 136-145 mmol/L Potassium Level 4.0 3.5-5.1 mmol/L Chloride Level 102 98-107 mmol/L Carbon Dioxide Level 27 20-31 mmol/L Anion Gap 12 5-15 Blood Urea Nitrogen 14 9-23 mg/dL Creatinine 1.03 0.700-1.30 mg/dL Glomerular Filtration Rate Calc 78 >90 mL/min BUN/Creatinine Ratio 13.6 10.0-20.0 Serum Glucose 149 H 74-106 mg/dL Hemoglobin A1c 5.8 H <5.7 % A1C Lactic Acid Level 1.7 0.4-2.0 mmol/L Calcium Level 10.6 H 8.7-10.4 mg/dL Magnesium Level 2.6 1.6-2.6 mg/dL Total Bilirubin 1.2 H 0.2-1.0 mg/dL Aspartate Amino Transferase (AST) 24 13-40 U/L Alanine Aminotransferase (ALT) 21 7-40 U/L Alkaline Phosphatase 71 46-116 U/L Total Protein 8.3 H 5.7-8.2 g/dL Albumin 4.9 H 3.2-4.8 g/dL Lipase 41 12-53 U/L Examination: GENERAL:Normal (Well nourished, alert awake and oriented x3), HEENT:Normal (No icterus, neck supple), LUNGS:Normal (Nonlabored breathing with symmetric expansion), ABDOMEN:Normal (Nondistended, paramedian scar healed, soft, depressible, nontender, no hernias, no masses), SKIN:Normal (No jaundice) Problem List/Assessment/Plan Problems: (1) Small bowel obstruction Assessment and Plan Mr. Cruz is a 69-year-old male who presents with a partial small bowel obstruction versus food poisoning. Patient had multiple stooling and emesis episodes and currently is feeling good. On physical exam he is not distended and nontender. He never got an NG-tube placed and at this point he has not felt nauseous or been vomiting. We will let the patient rest for today and we will likely obtain a small-bowel follow-through in the morning, unless he has another large bowel movement. Plan discussed with Plan discussed with: Patient, Spouse Visit Coding Surgery Date of Service if different f: Mar 11, 2025 Billing Provider: ANNETTA HERNANDEZ MD Surgery Visit Codes: [id number] - INP CONSULT <110 MIN ANNETTA HERNANDEZ MD Mar 11, 2025 17:56
[2025-03-11 21:00] VITALS: BP 155/87; PULSE 72; RESP 16; TEMP 97.3; O2SAT 95
[2025-03-11 22:00] VITALS: BP 148/89
[2025-03-12] VITALS (8 sets, daily range): BP systolic 120–144; BP diastolic 74–84; PULSE 61–95; RESP 16–20; TEMP 97.6–99.7; O2SAT 93–97
[2025-03-12 06:07] LABS: Hematocrit 39.3 % (41.0-53.0); Hemoglobin 13.5 g/dL (13.5-17.5); Mean Corpuscular Hemoglobin 32.4 pg (28.0-32.0); Mean Corpuscular Volume 93.9 fL (80.0-100.0); Nucleated Red Blood Cells % 0.0 %
[2025-03-12] MEDS: PIPERACILLIN-TAZOB 3.375GM 100 ML IV ONE ×2 (06:08→15:11)
[2025-03-12 06:22] LABS: Alanine Aminotransferase 15 U/L (7-40); Albumin 3.9 g/dL (3.2-4.8); Alkaline Phosphatase 48 U/L (46-116); Anion Gap 12 (5-15); BUN/Creatinine Ratio 17.5 (10.0-20.0); Blood Urea Nitrogen 18 mg/dL (9-23); Carbon Dioxide 27 mmol/L (20-31); Chloride 106 mmol/L (98-107); Magnesium 2.3 mg/dL (1.6-2.6); Potassium 3.8 mmol/L (3.5-5.1); Total Protein 6.6 g/dL (5.7-8.2)
[2025-03-12 06:36] LABS: Bilirubin, Total 1.5 mg/dL (0.2-1.0); Calcium 8.7 mg/dL (8.7-10.4); Glucose 107 mg/dL (74-106); Sodium 145 mmol/L (136-145)
[2025-03-12] MEDS: PANTOPRAZOLE 40 MG/10 ML VIAL INJ IV ONE (10:34)
--- NOTE | 2025-03-12 11:31 | DVHPN2 ---
Progress Note - Surgical Date Seen: Mar 12, 2025 Post op day Post op day: 0 Subjective Patient reports: Feels better (Patient feels good this morning, no abdominal pain complaints no nausea, no vomiting, had 3 bowel movements night (1 large and 2 small liquid once) patient feeling hungry) Review of Systems: Deferred Objective Vital signs Vital Sign Date Time Temp Pulse Resp B/P (MAP) Pulse Ox O2 Delivery O2 Flow Rate FiO2 03/12/25 09:00 98.0 76 20 133/81 (98) 97 98.0 03/11/25 20:00 Room Air* 0 21 Total Intake and Output 03/11/25 03/11/25 03/12/25 15:00 23:00 07:00 Intake Total 1000 ml 150 ml 600 ml Balance 1000 ml 150 ml 600 ml Medications Current Medications Medications Dose Ordered Sig/Rik Route Start Time Stop Time Status Last Admin Dose Admin Sodium Chloride 1,000 ml @ 60 mls/hr [id number] IV 03/11/25 11:30 03/11/25 21:23 60 MLS/HR Morphine Sulfate 2 mg Q4HPRN PRN IV 03/11/25 11:30 Nitroglycerin 0.4 mg Q5MINP PRN SL 03/11/25 11:30 Morphine Sulfate 2 mg Q30M PRN IV 03/11/25 11:30 Ondansetron HCl 4 mg Q8HP PRN IV 03/11/25 11:45 Piperacillin Sod/ Tazobactam Sod 100 ml @ 100 mls/hr Q8HR IV 03/11/25 14:00 03/12/25 06:17 100 MLS/HR Pantoprazole Sodium 40 mg DAILY IV 03/11/25 12:00 03/12/25 10:36 40 MG Laboratory Laboratory Tests 03/12/25 05:20 03/12/25 04:20 Test 03/12/25 04:20 Range/Units Serum Glucose 107 H 74-106 mg/dL Examination: GENERAL:Normal (AAO x3), LUNGS:Normal (Nonlabored breathing with symmetric expansion), ABDOMEN:Normal (Nondistended, paramedian incision healed, right flank scar healed, soft, depressible, nontender) Labs and/or images reviewed: Labs reviewed by me (No leukocytosis, no lactic acidosis) Problem List/Assessment/Plan Problems: (1) Small bowel obstruction Assessment and Plan Mr. Cruz is a 69-year-old male who presented with a partial small bowel obstruction versus enteritis from food poisoning. Prior to presentation patient had multiple diarrhea and vomiting episodes. When I saw him last night he was already feeling good, and we decided for bowel rest until the morning. Overnight he had 3 bowel movements 1 large and 2 smaller liquid movements. He is feeling good this morning and hungry. I offered small bowel follow-through versus trial of diet, pros and cons were also discussed for each. Patient opted for a trial of diet. I will start the patient on a clear liquid diet and advance as tolerated. If patient tolerates diet he can be discharged home. 1. Clear liquid diet and advance as tolerated 2. If patient tolerates diet advancement he can be discharged home. My Orders My Orders Orders - ANNETTA HERNANDEZ MD Procedure Category Date Status Time Clear Liq Diet DIET 03/12/25 Transmitted Lunch Plan discussed with Plan discussed with: Patient Visit Coding Surgery Date of Service if different f: Mar 12, 2025 Billing Provider: ANNETTA HERNANDEZ MD Surgery Visit Codes: [id number] INP/OBS CARE(HIGH) ANNETTA HERNANDEZ MD Mar 12, 2025 11:31
--- NOTE | 2025-03-12 17:55 | DVHPN2 ---
Subjective Patient's chart is reviewed. Admitted overnight for possible bowel obstruction in the small bowel. Evaluated by general surgery today. He is feeling better. Passing gas and having bowel movements. Started on clear liquid diet for lunch. Changes from previous H/P or p: No Changes Eyes: No Pain, No Vision change, No Conjunctivae inflammation, No Eyelid inflammation, No Other, No Redness ENT: No Ear pain, No Ear discharge, No Nose pain, No Nose discharge, No Nose congestion, No Mouth pain, No Mouth swelling, No Throat pain, No Throat swelling, No Other Cardiovascular: No Chest Pain, No Palpitations, No Orthopnea, No Paroxysmal Noc. Dyspnea, No Edema, No Lt Headedness, No Other Respiratory: No Cough, No Dry, No Shortness of breath, No SOB with excertion, No Wheezing, No Hemoptysis, No Pleuritic Pain, No Sputum, No Other Gastrointestinal: Nausea, Vomiting, Abdominal Pain; No Diarrhea; Constipation; No Melena, No Hematochezia, No Other Genitourinary: No Dysuria, No Frequency, No Incontinence, No Hematuria, No Retention, No Other Musculoskeletal: No other, No neck pain, No shoulder pain, No arm pain, No back pain, No hand pain, No leg pain, No foot pain Skin: No Rash, No Lesions, No Jaundice, No Bruising, No Other Objective Vitals Vital Signs Date Time Temp Pulse Resp B/P (MAP) Pulse Ox O2 Delivery O2 Flow Rate FiO2 03/12/25 16:34 97.8 61 18 137/82 (100) 94 97.8 03/12/25 08:00 Room Air* 0 21 Intake/Output Intake and Output 03/12/25 07:00 Intake Total 1750 ml Balance 1750 ml Intake Oral 150 ml IV Total 1600 ml # Voids 1 # Bowel Movements 1 Exam Alert awake oriented x3. HEENT neck supple no JVD. Heart regular rate and rhythm S1-S2. Lungs fair air movement without rales wheezes. Abdomen soft nontender nondistended positive bowel sounds. Extremities no edema positive distal pedal pulses. Medications Current Medications Medications Dose Ordered Sig/Rik Route Start Time Stop Time Status Last Admin Dose Admin Sodium Chloride 1,000 ml @ 60 mls/hr [id number] IV 03/11/25 11:30 03/11/25 21:23 60 MLS/HR Morphine Sulfate 2 mg Q4HPRN PRN IV 03/11/25 11:30 Nitroglycerin 0.4 mg Q5MINP PRN SL 03/11/25 11:30 Morphine Sulfate 2 mg Q30M PRN IV 03/11/25 11:30 Ondansetron HCl 4 mg Q8HP PRN IV 03/11/25 11:45 Piperacillin Sod/ Tazobactam Sod 100 ml @ 100 mls/hr Q8HR IV 03/11/25 14:00 03/12/25 15:40 100 MLS/HR Pantoprazole Sodium 40 mg DAILY IV 03/11/25 12:00 03/12/25 10:36 40 MG Laboratory Results Laboratory Tests 03/12/25 04:20 03/12/25 05:20 Chemistry Test 03/12/25 04:20 Albumin 3.9 g/dL (3.2-4.8) Calcium Level 8.7 mg/dL (8.7-10.4) Magnesium Level 2.3 mg/dL (1.6-2.6) Total Protein 6.6 g/dL (5.7-8.2) LFT Test 03/12/25 04:20 Alanine Aminotransferase (ALT) 15 U/L (7-40) Alkaline Phosphatase 48 U/L (46-116) Aspartate Amino Transferase (AST) 15 U/L (13-40) Total Bilirubin 1.5 mg/dL (0.2-1.0) H Urinalysis Test 03/11/25 06:00 Urine Color Yellow (Yellow) Urine Clarity Clear (Clear) Urine pH 7.0 (5.0-9.0) Urine Specific [place] 1.025 (1.001-1.035) Urine Protein Trace (Negative) H Urine Ketones 1+ (Negative) H Urine Blood Negative /uL (Negative) Urine Nitrite Negative (Negative) Urine Bilirubin Negative (Negative) Urine Urobilinogen 2 mg/dL (Negative) H Urine Leukocyte Esterase Negative /uL (Negative) Urine RBC <1 /hpf (0 - 3) Urine Microscopic WBC 1 /HPF (0-3) Urine Squamous Epithelial Cells Few /hpf (<5) Urine Bacteria None seen /hpf (None Seen) Urine Mucus Few (None Seen) Urine Glucose Normal mg/dL (Normal) Labs and/or images reviewed: Labs reviewed by me Assessment/Plan Assessment/Plan Hepatomegaly with a 6.8 cm echogenic mass within the right hepatic lobe. I will order MRI of the liver with a lower protocol to further evaluate this abnormal findings seen on ultrasound. Meantime advance as he tolerates. Monitor him overnight. Discharge plan for clinical course and liver MRI results. Discussed with the patient as well as nurse regarding care plan. Plan discussed with: Patient, Other Problem List: (1) Small bowel obstruction Date of Service: Mar 12, 2025 Billing Provider: DHIRAJ MULLIGAN MD Common Visit Codes: [id number] INP/OBS CARE(MOD) DHIRAJ MULLIGAN MD Mar 12, 2025 17:55
[2025-03-13 01:00] VITALS: BP 123/77; PULSE 60; RESP 18; TEMP 97; O2SAT 93
[2025-03-13 05:00] VITALS: BP 130/77; PULSE 64; RESP 18; TEMP 97.2; O2SAT 96
[2025-03-13 07:50] LABS: Alanine Aminotransferase 14 U/L (7-40); Albumin 3.8 g/dL (3.2-4.8); Anion Gap 12 (5-15); BUN/Creatinine Ratio 21.1 (10.0-20.0); Blood Urea Nitrogen 19 mg/dL (9-23); Calcium 8.8 mg/dL (8.7-10.4); Carbon Dioxide 27 mmol/L (20-31); Chloride 107 mmol/L (98-107); Glucose 86 mg/dL (74-106); Potassium 3.8 mmol/L (3.5-5.1); Total Protein 6.2 g/dL (5.7-8.2)
[2025-03-13 07:51] LABS: Alkaline Phosphatase 46 U/L (46-116); Bilirubin, Total 1.2 mg/dL (0.2-1.0); Sodium 146 mmol/L (136-145)
[2025-03-13 08:00] VITALS: PULSE 60; RESP 17; O2SAT 95
[2025-03-13 09:00] VITALS: BP 133/71; PULSE 60; RESP 17; TEMP 97.7; O2SAT 95
--- NOTE | 2025-03-13 09:44 | DVH ---
MRI MRI ABDOMEN NO CONTRAST Indication: ABNORMAL CT Comparison: CT 03/11/2025 Technique: MRI of the abdomen and pelvis was performed without gadolinium. 3D reconstructed images were created under concurrent radiologist supervision and archived on the PACS system. Findings: Bile ducts: Normal in caliber . No definite intraluminal filling defect although its evaluation is limited on this nondedicated MRI. Liver: Small left hepatic lobe cyst. Gallbladder: Unremarkable. Pancreas: Unremarkable. Lower chest: Unremarkable. Spleen: Unremarkable. Adrenals: Unremarkable. Kidneys: Unremarkable. Bowel: Apparent DWI hyperintensity corresponding to the GE junction. Overall improved dilatation of loops of small bowel, with persistent dilatation of distal loop of small bowel measuring up to 3.9 cm in the mid to lower abdomen. Lymph nodes: Unremarkable. Vessels: Grossly preserved flow void. Pelvis: Prostatomegaly. Bones soft tissues: No aggressive osseous lesion. Small bilateral fat containing inguinal hernia. Partially visualized scrotal hydroceles. IMPRESSION: Overall improved small bowel dilatation compared to the prior CT, with persistent dilated loop of small bowel seen in the mid to lower abdomen. Of note, evaluation for small bowel and colon is better on CT compared to MRI. If there is persistent clinical concern for partial bowel obstruction or ileus, recommend follow-up CT. Apparent DWI hyperintensity corresponding to GE junction. This could be infectious / inflammatory. Consider endoscopy if not recently performed to exclude underlying mass.
--- NOTE | 2025-03-13 12:32 | DVHPN2 ---
Progress Note - Surgical Date Seen: Mar 13, 2025 Post op day Post op day: 0 Subjective Patient reports: Feels better (Patient is tolerating diet, had 3 bowel movements 2 nights ago, passing lots of flatus, afebrile with vital stable) Review of Systems: Deferred Objective Vital signs Vital Sign Date Time Temp Pulse Resp B/P (MAP) Pulse Ox O2 Delivery O2 Flow Rate FiO2 03/13/25 09:00 97.7 60 17 133/71 (91) 95 97.7 03/13/25 08:00 Room Air* 0 21 Total Intake and Output 03/12/25 03/12/25 03/13/25 15:00 23:00 07:00 Intake Total 100 ml 1200 ml 200 ml Balance 100 ml 1200 ml 200 ml Medications Current Medications Medications Dose Ordered Sig/Rik Route Start Time Stop Time Status Last Admin Dose Admin Sodium Chloride 1,000 ml @ 60 mls/hr [id number] IV 03/11/25 11:30 03/11/25 21:23 60 MLS/HR Morphine Sulfate 2 mg Q4HPRN PRN IV 03/11/25 11:30 Nitroglycerin 0.4 mg Q5MINP PRN SL 03/11/25 11:30 Morphine Sulfate 2 mg Q30M PRN IV 03/11/25 11:30 Ondansetron HCl 4 mg Q8HP PRN IV 03/11/25 11:45 Piperacillin Sod/ Tazobactam Sod 100 ml @ 100 mls/hr Q8HR IV 03/11/25 14:00 03/13/25 05:30 100 MLS/HR Pantoprazole Sodium 40 mg DAILY IV 03/11/25 12:00 03/13/25 09:48 40 MG Laboratory Laboratory Tests 03/13/25 06:50 03/12/25 05:20 Test 03/13/25 06:50 Range/Units Serum Glucose 86 74-106 mg/dL Examination: GENERAL:Normal (AAO x3), LUNGS:Normal (Nonlabored breathing with symmetric expansion), ABDOMEN:Normal (Nondistended, soft, depressible, nontender previous scars well healed) Labs and/or images reviewed: Labs reviewed by me (No leukocytosis) Problem List/Assessment/Plan Assessment and Plan Mr. Cruz is a 69-year-old male who presented with a partial small bowel obstruction versus enteritis from food poisoning. Prior to presentation patient had multiple diarrhea and vomiting episodes. When I saw him last night he was already feeling good, and we decided for bowel rest until the morning. Overnight he had 3 bowel movements 1 large and 2 smaller liquid movements. He is feeling good this morning and hungry. I offered small bowel follow-through versus trial of diet, pros and cons were also discussed for each. Patient opted for a trial of diet. I will start the patient on a clear liquid diet and advance as tolerated. If patient tolerates diet he can be discharged home. Interval: Patient has been tolerating diet since yesterday, no additional bowel movements but passing lots of flatus. Patient doing well, okay for discharge per surgical standpoint. 1. Cleared for discharge per surgical standpoint. My Orders My Orders Orders - ANNETTA HERNANDEZ MD Procedure Category Date Status Time Regular Diet DIET 03/13/25 Transmitted Breakfast Plan discussed with Plan discussed with: Patient Visit Coding Surgery Date of Service if different f: Mar 13, 2025 Billing Provider: ANNETTA HERNANDEZ MD Surgery Visit Codes: [id number] INP/OBS CARE(HIGH) ANNETTA HERNANDEZ MD Mar 13, 2025 12:32
--- NOTE | 2025-03-13 12:44 | DVHDS2 ---
Discharge Summary Date of Admission Mar 11, 2025 at 11:23 Date of Discharge: Mar 13, 2025 Labs/Diagnostic Data: Laboratory Results Test 03/13/25 06:50 03/12/25 05:20 03/12/25 04:20 03/11/25 18:40 Sodium Level 146 mmol/L (136-145) Potassium Level 3.8 mmol/L (3.5-5.1) Chloride Level 107 mmol/L (98-107) Carbon Dioxide Level 27 mmol/L (20-31) Anion Gap 12 (5-15) Blood Urea Nitrogen 19 mg/dL (9-23) Creatinine 0.90 mg/dL (0.700-1.30) Glomerular Filtration Rate Calc 92 mL/min (>90) BUN/Creatinine Ratio 21.1 (10.0-20.0) Serum Glucose 86 mg/dL (74-106) Calcium Level 8.8 mg/dL (8.7-10.4) Total Bilirubin 1.2 mg/dL (0.2-1.0) Aspartate Amino Transferase (AST) 14 U/L (13-40) Alanine Aminotransferase (ALT) 14 U/L (7-40) Alkaline Phosphatase 46 U/L (46-116) Total Protein 6.2 g/dL (5.7-8.2) Albumin 3.8 g/dL (3.2-4.8) White Blood Count 7.3 10^3/uL (4.4-10.8) Red Blood Count 4.18 10^6/uL (4.5-5.90) Hemoglobin 13.5 g/dL (13.5-17.5) Hematocrit 39.3 % (41.0-53.0) Mean Corpuscular Volume 93.9 fL (80.0-100.0) Mean Corpuscular Hemoglobin 32.4 pg (28.0-32.0) Mean Corpuscular Hemoglobin Concent 34.4 g/dL (32.0-36.0) Red Cell Distribution Width 14.2 % (11.8-14.3) Platelet Count 156 10^3/uL (140-450) Mean Platelet Volume 9.3 fL (6.9-10.8) Neutrophils (%) (Auto) 77.1 % (37.0-80.0) Lymphocytes (%) (Auto) 12.7 % (10.0-50.0) Monocytes (%) (Auto) 9.4 % (0.0-12.0) Eosinophils (%) (Auto) 0.6 % (0.0-7.0) Basophils (%) (Auto) 0.2 % (0.0-2.0) Neutrophils # (Auto) 5.6 10 ^3/uL (1.6-8.6) Lymphocytes # (Auto) 0.9 10 ^3/uL (0.4-5.4) Monocytes # (Auto) 0.7 10 ^3/uL (0-1.3) Eosinophils # (Auto) 0 10 ^3/uL (0-0.8) Basophils # (Auto) 0 10 ^3/uL (0-0.2) Nucleated Red Blood Cells 0.0 % Lactic Acid Level 1.1 mmol/L (0.4-2.0) Magnesium Level 2.3 mg/dL (1.6-2.6) Troponin I High Sensitivity < 3 ng/L (</=54) Test 03/11/25 06:00 03/11/25 05:40 Urine Color Yellow (Yellow) Urine Clarity Clear (Clear) Urine pH 7.0 (5.0-9.0) Urine Specific [place] 1.025 (1.001-1.035) Urine Protein Trace (Negative) Urine Ketones 1+ (Negative) Urine Blood Negative /uL (Negative) Urine Nitrite Negative (Negative) Urine Bilirubin Negative (Negative) Urine Urobilinogen 2 mg/dL (Negative) Urine Leukocyte Esterase Negative /uL (Negative) Urine RBC <1 /hpf (0 - 3) Urine Microscopic WBC 1 /HPF (0-3) Urine Squamous Epithelial Cells Few /hpf (<5) Urine Bacteria None seen /hpf (None Seen) Urine Mucus Few (None Seen) Urine Glucose Normal mg/dL (Normal) Hemoglobin A1c 5.8 % A1C (<5.7) Lipase 41 U/L (12-53) Other Laboratory Tests 03/13/25 06:50 03/12/25 05:20 Brief Hx & Hospital Course: see dictated note Condition at Discharge: Fair Final Diagnosis/Problems List abd pain Discharge Disposition: Home Discharge Instruct/Medications Diet: Cardiac 2g Na,low cholest Activity: No Restrictions, As Tolerated Follow Up/Referral: fu with [facility] Medications: resume home meds Discharge Statement: "Patient was advised to return to the ER or call 911 if any headaches, dizziness, shortness of breath, chest pain, abdominal pain, bleeding, fevers, or worsening of medical condition. Patient was counseled about treatment plan, medications, possible side effects, patientverbalized understanding. All questions were answered to the best of my ability. This discharge took greater then 30 minutes in planning, reviewing documentation, counseling the patient, and discussing with other team members." ASSESSMENT ASSESSMENT Assessment abd pain Date of Service: Mar 13, 2025 Billing Provider: DEVANG BLACKMAN MD Common Visit Codes: 13401-YAC/OBS DISCH DAY >30min Secondary Visit Codes: [id number] CARE PLAN 30 MINUTES DEVANG BLACKMAN MD Mar 13, 2025 12:44
--- NOTE | 2025-03-13 13:00 | DVHDS ---
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 HOSPITAL COURSE: The patient had a CT of the abdomen and pelvis that showed evidence of dilated loops of the small bowel, likely representing partial versus early complete small bowel obstruction. He was seen in surgery consult by Dr. Hickman. The patient subsequently had a liver ultrasound that showed a possible echogenic mass within the right liver lobe. A subsequent MRI of the abdomen showed a cyst in the liver with improvement in the bowel dilatation. The patient will now be discharged home to resume his home medications and follow up with his primary in 1 week. FINAL DIAGNOSES: Therefore, * Abdominal pain with questionable partial small bowel obstruction. * History of prior liver surgery. Time spent in discharge planning including review of plan with the patient and was 38 minutes. I also gave a copy of the MRI to the patient's . ADVANCED CARE PLANNING: The patient is a full code. Time spent was 18 minutes. MD PAIGE Valentine/TEDDY TID: [id number] RECEIPT: [id number]
[2025-03-13 13:38] VITALS: BP 125/70; PULSE 78; RESP 17; TEMP 97.9; O2SAT 95
== END 2025-03-13 14:07 | disposition home or self-care (01) | DRG 390 ==
LOC: ER 05:06 → OVERFLOW 11:23 → WEST WING 16:07
PROVIDERS: ADMIT Internal Medicine; ATTEND Internal Medicine
PROC: 0D9670Z Drainage of Stomach with Drainage Device, Via Natural or Artificial Opening (ICD-10-PCS; principal; 2025-03-11)
DX: K56.600 Partial intestinal obstruction, unspecified as to cause (principal); K76.89 Other specified diseases of liver; R16.0 Hepatomegaly, not elsewhere classified; E66.9 Obesity, unspecified; Z68.31 Body mass index [BMI] 31.0-31.9, adult; E83.52 Hypercalcemia; K57.30 Diverticulosis of large intestine without perforation or abscess without bleeding; E80.6 Other disorders of bilirubin metabolism; E86.0 Dehydration; Z71.82 Exercise counseling
CPT/HCPCS: 36415; 72195; 74176; 74181; 76705; 80053; 81001; 83036; 83605; 83690; 83735; 84484; 85025; 96361; 96374; 96375; 99291; G0378; J2405; J2470; J2543